=== PATIENT | male | born 1985 | race Caucasian/White ===

== ENCOUNTER 2018-11-04 12:58 | Emergency (ER) | payer MEDICAID, OTHER ==
[~2018-11-04] VITALS: Ht 193 cm; Wt 78.2 kg
[~2018-11-04 12:58] MED LIST: LIB25C PO
[2018-11-04 14:09] LABS: BASOPHILS % (AUTO) 0.4 % (0-1); EOSINOPHILS % (AUTO) 0.7 % (0-6); HEMATOCRIT 42.3 % (42.0-52.0); HEMOGLOBIN 14.7 g/dl (14.0-17.9); LYMPHOCYTES # (AUTO) 0.6 X10'3 (1.1-4.8); LYMPHOCYTES % (AUTO) 9.8 % (21-51); MEAN CORPUSCULAR HGB CONC 34.7 g/dL (33.0-36.5); MEAN CORPUSCULAR VOLUME 95.1 FL (78-98); MEAN PLATELET VOLUME 7.2 FL (7.4-10.4); MONOCYTES # (AUTO) 0.4 X10'3 (0-0.9); MONOCYTES % (AUTO) 5.8 % (2-12); NEUTROPHILS # (AUTO) 5.5 X10'3 (1.8-7.7); NEUTROPHILS % (AUTO) 83.3 % (42-75); PLATELET COUNT 227 X10'3 (140-440); RED BLOOD COUNT 4.44 X10'6 (4.70-6.10); RED CELL DISTRIBUTION WIDTH 12.4 % (11.5-14.5); WHITE BLOOD COUNT 6.6 X10'3 (4.5-11.0)
[2018-11-04 14:16] LABS: ALANINE AMINOTRANSFERASE 83 U/L (12-78); ALBUMIN 4.1 G/DL (3.4-5.0); ALBUMIN/GLOBULIN RATIO 1.2 (1.1-1.5); ALKALINE PHOSPHATASE 83 IU/L (46-116); ANION GAP 8 (8-16); ASPARTATE AMINO TRANSFERASE 71 U/L (10-37); BILIRUBIN,TOTAL 0.6 MG/DL (0.1-1.0); BLOOD UREA NITROGEN 13 MG/DL (7-18); BUN/CREATININE RATIO 14.1 (5.4-32.0); CALCIUM 8.9 MG/DL (8.5-10.1); CHLORIDE 100 MMOL/L (99-107); CREATININE 0.92 MG/DL (0.60-1.10); GLUCOSE 127 MG/DL (70-104); POTASSIUM 3.8 MMOL/L (3.5-5.1); SODIUM 138 MMOL/L (135-145); TOTAL CARBON DIOXIDE 30.3 MMOL/L (24-32); TOTAL PROTEIN 7.6 G/DL (6.4-8.2); eGFR > 90 ML/MIN
[2018-11-04 14:17] LABS: ETHANOL < 0.010 GM/DL (0.0-0.010)
[2018-11-04] MEDS ORDERED: KEP500T PO (15:33)
[2018-11-04] MEDS ORDERED: levetiracetam 250mg tablet PO ONE (15:35)
[2018-11-04 15:44] VITALS: BP 125/80
== END 2018-11-04 15:52 | disposition home or self-care (01) ==
LOC: ER 12:59
DX: G40.909 Epilepsy, unspecified, not intractable, without status epilepticus (principal); R41.0 Disorientation, unspecified; F17.200 Nicotine dependence, unspecified, uncomplicated
CPT/HCPCS: 36415; 70450; 80053; 80320; 85025; 99284

== ENCOUNTER 2019-07-11 08:56 | Emergency (ER) | payer MEDICAID, OTHER ==
[~2019-07-11] VITALS: Ht 198.1 cm; Wt 83.2 kg
[~2019-07-11 08:56] MED LIST changes: +KEP500T PO
[2019-07-11 08:58] VITALS: BP 143/97
[2019-07-11] MEDS ORDERED: IBUP-1986 PO (09:36)
[2019-07-11] MEDS ORDERED: HYDR-4383 PO (09:36)
== END 2019-07-11 10:01 | disposition home or self-care (01) ==
LOC: ER 08:57
DX: S93.492A Sprain of other ligament of left ankle, initial encounter (principal); F10.99 Alcohol use, unspecified with unspecified alcohol-induced disorder; Z86.69 Personal history of other diseases of the nervous system and sense organs; Z79.899 Other long term (current) drug therapy; W17.89XA Other fall from one level to another, initial encounter; Y93.89 Activity, other specified; Y92.89 Other specified places as the place of occurrence of the external cause; Y99.8 Other external cause status; Y90.9 Presence of alcohol in blood, level not specified
CPT/HCPCS: 73610; 99284